=== PATIENT | female | born 1975 | race Caucasian/White ===

== ENCOUNTER 2020-09-23 03:03 | Emergency (ER) | payer BC, OTHER ==
[~2020-09-23] VITALS: Ht 180.3 cm; Wt 115.0 kg
[~2020-09-23 03:03] MED LIST: CEPH-368 PO; HYDR-3237 PO; IBUP-1223 PO
--- NOTE | 2020-09-23 03:23 | NUR ---
PT C/O OF LEFT LEG PAIN. PT REPORTS BREAKING FIBULA LAST SATURDAY. PAIN HAS BEEN PROGRESSIVELY WORSE SINCE September. PT IS BREATHING FAST AND MOANING BECAUSE OF HER PAIN. SAYS SHE HAS NOT REACHED OUT TO ORTHO DCOTOR YET. ATTACHED TO MONITORS. ELEVATED HR.
[2020-09-23] MEDS ORDERED: HYDROmorphone 1 MG/ML, 1ML INJ ONE (03:58)
[2020-09-23] MEDS ORDERED: HYDROmorphone 1 MG/ML, 1ML INJ IM ONE (04:00)
--- NOTE | 2020-09-23 04:03 | NUR ---
Patient is resting comfortably in bed. Bed in lowest, rails engaged, call light on lap. Vital Signs within normal limits. WCTM. OLERATED MEDICATION WELL. AT BEDSIDE.
--- NOTE | 2020-09-23 04:25 | NUR ---
xray: exam attempted, pt refused to finish exam, unable to get diagnostic images, md advised.
[2020-09-23 04:31] VITALS: BP 126/97
--- NOTE | 2020-09-23 04:32 | NUR ---
PT RESTING IN BED WITH AT BEDSIDE. PT IN A LOT OF PIN FROM X-RAY POSITIONING. PT FEELING BETTER NOW THAT IT IS OVER. ATTACHED TO MONITORS. VSS WITH ELEVATED HR. BED IN LOW POSITION, CALL LIGHT WITHIN REACH. RAILS ENGAGED. WCTM
[2020-09-23] MEDS ORDERED: ACETAMINOPHEN 500 MG TABLET ONE (04:50)
[2020-09-23] MEDS ORDERED: ACETAMINOPHEN 500 MG TABLET PO ONE (05:00)
--- NOTE | 2020-09-23 06:26 | NUR ---
Patient given discharge instructions and they have confirmed that they understand the instructions. Patient WHEELCHAIRED OUT WITH AT SIDE. NAD, all questions answered appropriately, denies additional needs at this time. No personal belongings left in room after discharge. COMMUNICATED UNDERSTANDING OF ORTHOPEDIC INSTRUCTIONS, CMS, AND SPLINT PRECAUTIONS.
== END 2020-09-23 06:29 | disposition home or self-care (01) ==
LOC: ED 03:33
DX: S82.65XA Nondisplaced fracture of lateral malleolus of left fibula, initial encounter for closed fracture (principal); F17.210 Nicotine dependence, cigarettes, uncomplicated; G43.909 Migraine, unspecified, not intractable, without status migrainosus; Z90.89 Acquired absence of other organs; Z90.49 Acquired absence of other specified parts of digestive tract; Z90.710 Acquired absence of both cervix and uterus; W18.30XA Fall on same level, unspecified, initial encounter; Y93.89 Activity, other specified; Y92.410 Unspecified street and highway as the place of occurrence of the external cause; Y99.0 Civilian activity done for income or pay
CPT/HCPCS: 29515; 73610; 96372; 99285; 99406; J1170

== ENCOUNTER 2020-09-26 00:57 | Emergency (ER) | payer OTHER ==
[~2020-09-26] VITALS: Ht 180.3 cm; Wt 113.0 kg
[2020-09-26 00:59] VITALS: BP 124/82
--- NOTE | 2020-09-26 01:29 | NUR ---
ERP TO BEDSIDE FOR ASSESSMENT AND POC
== END 2020-09-26 03:04 | disposition home or self-care (01) ==
LOC: ED 01:38
DX: S82.62XA Displaced fracture of lateral malleolus of left fibula, initial encounter for closed fracture (principal); G43.909 Migraine, unspecified, not intractable, without status migrainosus; F17.200 Nicotine dependence, unspecified, uncomplicated; Z90.49 Acquired absence of other specified parts of digestive tract; X58.XXXA Exposure to other specified factors, initial encounter; Y93.89 Activity, other specified; Y92.89 Other specified places as the place of occurrence of the external cause; Y99.8 Other external cause status
CPT/HCPCS: 29515; 99283